=== PATIENT | female | born 1970 | race Two or more races ===

== ENCOUNTER 2018-11-07 17:33 | Emergency (ER) | payer SELFPAY ==
[~2018-11-07] VITALS: Ht 160 cm; Wt 65.9 kg
[2018-11-07 17:36] VITALS: BP 119/80
[2018-11-07] MEDS ORDERED: KETOROLAC TROMETHAMINE 60 MG/2 ML VIAL IM ONE (19:15)
[2018-11-07] MEDS ORDERED: METHOCARBAMOL 500 MG TABLET PO ONE (19:15)
== END 2018-11-07 19:58 | disposition home or self-care (01) ==
LOC: EMS 17:34
DX: S13.4XXA Sprain of ligaments of cervical spine, initial encounter (principal); S16.1XXA Strain of muscle, fascia and tendon at neck level, initial encounter; S39.012A Strain of muscle, fascia and tendon of lower back, initial encounter; V49.9XXA Car occupant (driver) (passenger) injured in unspecified traffic accident, initial encounter; Y93.89 Activity, other specified; Y92.488 Other paved roadways as the place of occurrence of the external cause; Y99.8 Other external cause status
CPT/HCPCS: 96372; 99283; J1885

== ENCOUNTER 2019-12-03 07:53 | Emergency (ER) | payer MEDICAID, OTHER ==
[~2019-12-03] VITALS: Ht 157.5 cm; Wt 65.9 kg
[2019-12-03] MEDS ORDERED: IBUPROFEN 600 MG TABLET PO ONE (08:15)
[2019-12-03 10:11] VITALS: BP 111/64
== END 2019-12-03 11:01 | disposition home or self-care (01) ==
LOC: EMS 07:53
DX: S13.4XXA Sprain of ligaments of cervical spine, initial encounter (principal); M54.2 Cervicalgia; M54.6 Pain in thoracic spine; V49.9XXA Car occupant (driver) (passenger) injured in unspecified traffic accident, initial encounter; Y93.89 Activity, other specified; Y92.488 Other paved roadways as the place of occurrence of the external cause; Y99.8 Other external cause status
CPT/HCPCS: 72070; 72100; 72125

== ENCOUNTER 2023-04-30 12:07 | Emergency (ER) | payer MEDICAID ==
[~2023-04-30] VITALS: Ht 157.5 cm; Wt 68.2 kg
[2023-04-30 12:12] VITALS: TEMP 100
[2023-04-30] MEDS ORDERED: PERTUSS(ACELL),DIPH,TET VAC/PF 0.5 ML SYRINGE IM. ONE (14:15)
[2023-04-30] MEDS ORDERED: NEOMYCIN/BACITRACIN/POLYMYXIN B OINTMENT PACKET TP ONE (14:45)
[2023-04-30 15:09] VITALS: BP 142/86; PULSE 74; RESP 18
== END 2023-04-30 15:40 | disposition home or self-care (01) ==
LOC: EMS 12:12
DX: S80.01XA Contusion of right knee, initial encounter (principal); S80.211A Abrasion, right knee, initial encounter; Z23 Encounter for immunization; W18.39XA Other fall on same level, initial encounter; Y93.89 Activity, other specified; Y92.89 Other specified places as the place of occurrence of the external cause; Y99.8 Other external cause status
CPT/HCPCS: 90471; 90715; 99283